=== PATIENT | female | born 1995 | race Caucasian/White ===

== ENCOUNTER 2016-12-15 21:33 | Emergency (ER) | payer SELFPAY ==
[~2016-12-15] VITALS: Ht 154.9 cm; Wt 49.0 kg
[2016-12-15 21:34] VITALS: BP 112/71; PULSE 77; RESP 16; TEMP 97.7; O2SAT 99
[2016-12-15] MEDS ORDERED: CEPH-460 PO (22:14)
[2016-12-15] MEDS ORDERED: BACT800T5 PO (22:14)
[2016-12-15] MEDS ORDERED: CEPHALEXIN MONOHYDRATE 500 MG CAP PO ONE (22:15)
[2016-12-15] MEDS ORDERED: SULFAMETHOXAZOLE-TRIMETHOPRIM DS 800-160 MG TAB PO ONE (22:15)
--- NOTE | 2016-12-15 22:15 | PD ---
HPI Chief Complaint: Skin Problem Time Seen by Provider: 21:59 Travel History International Travel<30 days: No Contact w/Intl Traveler<30days: No Traveled to known affect area: No History of Present Illness HPI 21-year-old female presents to the emergency department for evaluation of possible infection to her left wrist. She states she was bit by an insect approximately 3 days ago. She states that she was using vinegar to help with the infection, but the redness has spread. She denies any fevers or chills. She has no medical problems and takes no prescribed medications. She denies any chance of . Patient denies any history of IV drug use. Severity is [id number]-bldbsrnq. No exacerbating or alleviating factors. PFSH Past Medical History Medical History: Denies Significant Hx Diminished Hearing: No Immunizations Current: No ?: Not LMP: 12/11/16 Past Surgical History Surgical History: No Previous Surgery Social History Alcohol Use: No Tobacco Use: Yes (3-5 CIGS AND USES HOOKA) Substance Use: No Allergies-Medications (Allergen,Severity, Reaction): Coded Allergies: No Known Allergies (Unverified , 12/15/16) Review of Systems Except as stated in HPI: all other systems reviewed are Neg Physical Exam Narrative GENERAL: Well-nourished, well-developed female patient, ambulatory. Afebrile. SKIN: Focused skin assessment warm/dry. Patient has 5 cm x 7 cm area of erythema to the left wrist. No fluctuance or evidence of abscess. No lymphangitis. HEAD: Normocephalic. Atraumatic. EYES: No scleral icterus. No injection or drainage. NECK: Supple, trachea midline. No JVD or lymphadenopathy. CARDIOVASCULAR: Regular rate and rhythm without murmurs, gallops, or rubs. Right radial pulses 2+. RESPIRATORY: Breath sounds equal bilaterally. No accessory muscle use. Lungs sounds are clear to auscultation. GASTROINTESTINAL: Abdomen soft, non-tender, nondistended. MUSCULOSKELETAL: No cyanosis, or edema. Patient has full flexion-extension of the right wrist without pain or stiffness. BACK: Nontender without obvious deformity. No CVA tenderness. Data Data Last Documented VS Vital Signs Date Time Temp Pulse Resp B/P (MAP) Pulse Ox O2 Delivery O2 Flow Rate FiO2 12/15/16 21:34 97.7 77 16 112/71 (85) 99 Room Air Orders Orders Sulfamet-Trimeth Ds 800-160 Mg (Bactrim (12/15/16 22:15) Cephalexin (Keflex) (12/15/16 22:15) [facility] Medical Decision Making Medical Screen Exam Complete: Yes Emergency Medical Condition: Yes Medical Record Reviewed: Yes Differential Diagnosis Cellulitis versus abscess versus localized reaction versus septic joint Narrative Course 21-year-old female presents to the emergency department for evaluation of erythema to her left wrist that started 3 days ago after an insect bite. Physical exam is consistent with cellulitis. There is no evidence of abscess or septic joint on exam. Patient is given first dose of Bactrim and Keflex in the emergency department. She'll be discharged with prescriptions for the same. She is instructed to monitor closely and return if worsening symptoms. She verbalizes agreement and understanding. The patient was discharged in stable condition with instructions, including return instructions and follow up instructions. Diagnosis Primary Impression: Cellulitis of wrist Referrals: Primary Care Physician call for appointment Patient Instructions: Cellulitis (ED), General Instructions Additional Instructions: Clean area twice daily with soap and water and apply iixz-ixd-[id number] antibiotic ointment. Take antibiotics as directed until gone. Follow-up with your primary care physician. Return to the emergency department for any acute worsening of symptoms. Med/Other Pt SpecificInfo: Prescription(s) given Scripts Cephalexin (Keflex) 500 Mg Capsule 500 MG PO Q6H for Infection for 10 Days, #40 CAP 0 Refills Prov: Petrona Cedillo 12/15/16 Sulfamethoxazole-Trimethoprim (Bactrim DS) 800-160 Mg Tab 1 TAB PO BID for Infection, #20 TAB 0 Refills Prov: ePtrona Cedillo 12/15/16 Disposition: 01 DISCHARGE HOME Condition: Stable Petrona Cedillo Dec 15, 2016 22:15
== END 2016-12-15 22:30 | disposition home or self-care (01) ==
LOC: NEPE 21:33
DX: L03.113 Cellulitis of right upper limb (principal); F17.210 Nicotine dependence, cigarettes, uncomplicated
CPT/HCPCS: 99284

== ENCOUNTER 2017-01-17 04:38 | Emergency (ER) | payer SELFPAY ==
[~2017-01-17] VITALS: Ht 152.4 cm; Wt 49.0 kg
[~2017-01-17 04:38] MED LIST: BACT800T5 PO; CEPH-460 PO
[2017-01-17 04:40] VITALS: BP 94/62; PULSE 102; RESP 16; TEMP 98.6; O2SAT 95
[2017-01-17] MEDS ORDERED: ONDANSETRON HCL 4 MG/2 ML VIAL IV PUSH ONE (05:15)
[2017-01-17] MEDS ORDERED: SODIUM CHLOR 0.9% 1000 ML INJ 1,000 ML IV ONE (05:15)
[2017-01-17] MEDS ORDERED: PANTOPRAZOLE SODIUM 40 MG VIAL IV PUSH ONE (05:15)
[2017-01-17 05:33] LABS: AUTOMATED NEUTROPHIL # 7.2 TH/MM3 (1.8-7.7); BASOPHIL % 0.2 % (0.0-2.0); EOSINOPHIL % 0.1 % (0.0-4.0); HEMATOCRIT 39.6 % (35.0-46.0); HEMO FLAGS DIFF FINAL; LYMPH % 12.1 % (9.0-44.0); MEAN CELL VOLUME 83.1 FL (80.0-100.0); MEAN CORPUSCULAR HEMOGLOBIN 29.2 PG (27.0-34.0); MEAN CORPUSCULAR HGB CONC 35.2 % (32.0-36.0); MONO % 4.3 % (0.0-8.0); NEUT % 83.3 % (16.0-70.0); PLATELET COUNT 232 TH/MM3 (150-450); RED BLOOD COUNT 4.77 MIL/MM3 (4.00-5.30); RED CELL DISTRIBUTION WIDTH 12.7 % (11.6-17.2); WHITE BLOOD COUNT 8.6 TH/MM3 (4.0-11.0)
[2017-01-17 05:44] LABS: ANION GAP 8 MEQ/L (5-15); AST (GOT) 10 U/L (15-37); BICARBONATE 26.1 MEQ/L (21.0-32.0); BLOOD UREA NITROGEN 10 MG/DL (7-18); CHLORIDE 104 MEQ/L (98-107); GLOMERULAR FILTRATION RATE 89 ML/MIN (>89); POTASSIUM 3.3 MEQ/L (3.5-5.1); SODIUM (NA) 138 MEQ/L (136-145)
[2017-01-17 05:45] LABS: ALT (GPT) 15 U/L (10-53)
[2017-01-17 05:47] LABS: ALKALINE PHOSPHATASE 45 U/L (45-117); TOTAL BILIRUBIN ADULT 0.5 MG/DL (0.2-1.0)
[2017-01-17] MEDS ORDERED: MORPHINE SULFATE 4 MG/ML INJ IV PUSH ONE (06:00)
[2017-01-17] MEDS ORDERED: DIATRIZOATE MEGLUM/DIATRIZOATE SOD 9 ML CUP ONE (06:04)
[2017-01-17] MEDS ORDERED: IOHEXOL 350 MG/ML 10 ML VIAL (for RAD DIAG) IVCONTRAST ONE (07:22)
--- NOTE | 2017-01-17 07:57 | RADRPT ---
EXAM DATE/TIME: 01/17/2017 07:08 [facility] COMPARISON: No previous studies available for comparison. INDICATIONS : Lower abdominal pain since last night. IV CONTRAST: 68 cc Omnipaque 350 (iohexol) IV ORAL CONTRAST: No oral contrast ingested. RADIATION DOSE: 4.85 CTDIvol (mGy) MEDICAL HISTORY : None SURGICAL HISTORY : None. ENCOUNTER: Initial ACUITY: 1 day PAIN SCALE: 6/10 LOCATION: Bilateral lower quadrant TECHNIQUE: Volumetric scanning of the abdomen and pelvis was performed. Using automated exposure control and adjustment of the mA and/or kV according to patient size, radiation dose was kept as low as reasonably achievable to obtain optimal diagnostic quality images. DICOM format image data is av ailable electronically for review and comparison. FINDINGS: LOWER LUNGS: The visualized lower lungs are clear. LIVER: Homogeneous density without lesion. There is no dilation of the biliary tree. No calcifi ed gallstones. SPLEEN: Normal size without lesion. PANCREAS: Within normal limits. KIDNEYS: Normal in size and shape. There is no mass, stone or hydronephrosis. ADRENAL GLANDS: Within normal limits. VASCULAR: There is no aortic aneurysm. BOWEL/MESENTERY: The stomach, small bowel, and colon demonstrate no acute abnormality. There is no free intraperitoneal air or fluid. ABDOMINAL WALL: Within normal limits. RETROPERITONEUM: There is no lymphadenopathy. BLADDER: No wall thickening or mass. REPRODUCTIVE: Within normal limits. Minimal prominence of the left fallopian tube. Some free flui d in the pelvis not unusual for a female this age INGUINAL: There is no lymphadenopathy or hernia. MUSCULOSKELETAL: Within normal limits for patient age. CONCLUSION: The appendix is unremarkable without evidence of appendicitis. The solid organs of the ab domen are unremarkable. There is mild prominence of left sided fallopian tube and some physiologic fr ee fluid in the pelvis not unusual for a female this age. Nathen Flores MD on January 17, 2017 at 7:55 Board Certified Radiologist. This report was verified electronically.
[2017-01-17 08:05] LABS: BETA HCG QUANT LESS THAN 1 MIU/ML (0-5)
[2017-01-17] MEDS ORDERED: ZOFR4TAB3 SL (08:43)
[2017-01-17] MEDS ORDERED: DICY10 PO (08:43)
--- NOTE | 2017-01-17 08:43 | PD ---
Data Data Last Documented VS Vital Signs Date Time Temp Pulse Resp B/P (MAP) Pulse Ox O2 Delivery O2 Flow Rate FiO2 01/17/17 04:40 98.6 102 16 94/62 (73) 95 Room Air Orders Orders Complete Blood Count With Diff (01/17/17 05:14) Comprehensive Metabolic Panel (01/17/17 05:14) Lipase (01/17/17 05:14) Pantoprazole Inj (Protonix Inj) (01/17/17 05:15) Ondansetron Inj (Zofran Inj) (01/17/17 05:15) Sodium Chlor 0.9% 1000 Ml Inj (Ns 1000 M (01/17/17 05:15) Morphine Inj (Morphine Inj) (01/17/17 06:00) Ct Abd/Pel W Iv Contrast(Rout) (01/17/17 ) Oral Contrast - Adult (01/17/17 06:00) Diatrizoate Liq ( Gastroview Liq) (01/17/17 06:04) Iohexol 350 Inj (Omnipaque 350 Inj) (01/17/17 07:22) Beta Hcg (Quant/Titer) (01/17/17 07:33) Labs Laboratory Tests Test 01/17/17 05:10 White Blood Count 8.6 TH/MM3 Red Blood Count 4.77 MIL/MM3 Hemoglobin 13.9 GM/DL Hematocrit 39.6 % Mean Corpuscular Volume 83.1 FL Mean Corpuscular Hemoglobin 29.2 PG Mean Corpuscular Hemoglobin Concent 35.2 % Red Cell Distribution Width 12.7 % Platelet Count 232 TH/MM3 Mean Platelet Volume 7.3 FL Neutrophils (%) (Auto) 83.3 % Lymphocytes (%) (Auto) 12.1 % Monocytes (%) (Auto) 4.3 % Eosinophils (%) (Auto) 0.1 % Basophils (%) (Auto) 0.2 % Neutrophils # (Auto) 7.2 TH/MM3 Lymphocytes # (Auto) 1.0 TH/MM3 Monocytes # (Auto) 0.4 TH/MM3 Eosinophils # (Auto) 0.0 TH/MM3 Basophils # (Auto) 0.0 TH/MM3 CBC Comment DIFF FINAL Differential Comment Blood Urea Nitrogen 10 MG/DL Creatinine 0.80 MG/DL Random Glucose 90 MG/DL Total Protein 6.7 GM/DL Albumin 3.6 GM/DL Calcium Level 8.1 MG/DL Alkaline Phosphatase 45 U/L Aspartate Amino Transf (AST/SGOT) 10 U/L Alanine Aminotransferase (ALT/SGPT) 15 U/L Total Bilirubin 0.5 MG/DL Sodium Level 138 MEQ/L Potassium Level 3.3 MEQ/L Chloride Level 104 MEQ/L Carbon Dioxide Level 26.1 MEQ/L Anion Gap 8 MEQ/L Estimat Glomerular Filtration Rate 89 ML/MIN Lipase 86 U/L Human Chorionic Gonadotropin, Quant LESS THAN 1 MIU/ML MDM Supervised Visit with CHELLE: Yes Narrative Course 20 year-old woman, history of abdominal pain, nausea vomiting diarrhea, family member with same. Signed out to me by Dr. Roberts the follow-up on the results of labs and CT. LABS: CBC is unremarkable. CMP is unremarkable. HCG is negative. Lipase is normal. CT abdomen and pelvis unremarkable without evidence of appendicitis. FINAL: On repeat exam, patient appears comfortable, benign abdominal exam, recommend supportive treatment. Diagnosis Primary Impression: Abdominal pain Additional Impression: Nausea vomiting and diarrhea Additional Instruction: Take Zofran as prescribed as needed for nausea or vomiting. Take Bentyl as needed for abdominal pain or cramping. Use edyv-kah-tqkymus Imodium as needed for diarrhea. Return to the emergency department for any worsening abdominal pain, bloody diarrhea, high fevers, or any other new or worsening symptoms. Follow-up with your primary physician on Friday if you are not completely well. Med/Other Pt SpecificInfo: Prescription(s) given Scripts Dicyclomine (Bentyl) 10 Mg Cap 10 MG PO TID Y for Bowel Management, #12 CAP 0 Refills Prov: Nathen Mccain MD 01/17/17 Ondansetron Odt (Zofran Odt) 4 Mg Tab 4 MG SL Q8HR Y for Nausea/Vomiting, #12 TAB 0 Refills Prov: Nathen Mccain MD 01/17/17 Disposition: 01 DISCHARGE HOME Condition: Stable Nathen Mccain MD Jan 17, 2017 08:43
--- NOTE | 2017-01-30 19:37 | PD ---
HPI Chief Complaint: Abdominal Pain Time Seen by Provider: 04:58 Travel History International Travel<30 days: No Contact w/Intl Traveler<30days: No Traveled to known affect area: No History of Present Illness HPI pt 20 yr old with abdominal pain with nausea diarrhea vomit , not relieved by home OTC meds . Pt has sick contact with similiar symptoms . PFSH Past Medical History Medical History: Denies Significant Hx Diminished Hearing: No Immunizations Current: No ?: Not LMP: 01/10/17 Past Surgical History Surgical History: No Previous Surgery Social History Alcohol Use: No Tobacco Use: Yes (1/2 PPD AND USES HOOKA) Substance Use: No Allergies-Medications (Allergen,Severity, Reaction): Coded Allergies: No Known Allergies (Unverified , 01/17/17) Reported Meds & Prescriptions Reported Meds & Active Scripts Active Bentyl (Dicyclomine HCl) 10 Mg Cap 10 Mg PO TID PRN Zofran Odt (Ondansetron Odt) 4 Mg Tab 4 Mg SL Q8HR PRN Review of Systems Except as stated in HPI: all other systems reviewed are Neg Gastrointestinal: Positive: Nausea, Abdominal Pain Physical Exam Narrative GENERAL: non toxic appearing awake alert Ox3 SKIN: Warm and dry. HEAD: Atraumatic. Normocephalic. EYES: Pupils equal and round. No scleral icterus. No injection or drainage. ENT: No nasal bleeding or discharge. Mucous membranes pink and moist. NECK: Trachea midline. No JVD. CARDIOVASCULAR: Regular rate and rhythm. RESPIRATORY: No accessory muscle use. Clear to auscultation. Breath sounds equal bilaterally. GASTROINTESTINAL: Abdomen right sided abdo pain mildly soft, nondistended. Hepatic and splenic margins not palpable. MUSCULOSKELETAL: Extremities without clubbing, cyanosis, or edema. No obvious deformities. NEUROLOGICAL: Awake and alert. No obvious cranial nerve deficits. Motor grossly within normal limits. Five out of 5 muscle strength in the arms and legs. Normal speech. PSYCHIATRIC: Appropriate mood and affect; insight and judgment normal. Data Data Orders Orders Complete Blood Count With Diff (01/17/17 05:14) Comprehensive Metabolic Panel (01/17/17 05:14) Lipase (01/17/17 05:14) Pantoprazole Inj (Protonix Inj) (01/17/17 05:15) Ondansetron Inj (Zofran Inj) (01/17/17 05:15) Sodium Chlor 0.9% 1000 Ml Inj (Ns 1000 M (01/17/17 05:15) Morphine Inj (Morphine Inj) (01/17/17 06:00) Ct Abd/Pel W Iv Contrast(Rout) (01/17/17 ) Oral Contrast - Adult (01/17/17 06:00) Diatrizoate Liq (Md Salomon Liq) (01/17/17 06:04) Iohexol 350 Inj (Omnipaque 350 Inj) (01/17/17 07:22) Beta Hcg (Quant/Titer) (01/17/17 07:33) Ed Discharge Order (01/17/17 08:54) Labs Laboratory Tests Test 01/17/17 05:10 White Blood Count 8.6 TH/MM3 Red Blood Count 4.77 MIL/MM3 Hemoglobin 13.9 GM/DL Hematocrit 39.6 % Mean Corpuscular Volume 83.1 FL Mean Corpuscular Hemoglobin 29.2 PG Mean Corpuscular Hemoglobin Concent 35.2 % Red Cell Distribution Width 12.7 % Platelet Count 232 TH/MM3 Mean Platelet Volume 7.3 FL Neutrophils (%) (Auto) 83.3 % Lymphocytes (%) (Auto) 12.1 % Monocytes (%) (Auto) 4.3 % Eosinophils (%) (Auto) 0.1 % Basophils (%) (Auto) 0.2 % Neutrophils # (Auto) 7.2 TH/MM3 Lymphocytes # (Auto) 1.0 TH/MM3 Monocytes # (Auto) 0.4 TH/MM3 Eosinophils # (Auto) 0.0 TH/MM3 Basophils # (Auto) 0.0 TH/MM3 CBC Comment DIFF FINAL Differential Comment Blood Urea Nitrogen 10 MG/DL Creatinine 0.80 MG/DL Random Glucose 90 MG/DL Total Protein 6.7 GM/DL Albumin 3.6 GM/DL Calcium Level 8.1 MG/DL Alkaline Phosphatase 45 U/L Aspartate Amino Transf (AST/SGOT) 10 U/L Alanine Aminotransferase (ALT/SGPT) 15 U/L Total Bilirubin 0.5 MG/DL Sodium Level 138 MEQ/L Potassium Level 3.3 MEQ/L Chloride Level 104 MEQ/L Carbon Dioxide Level 26.1 MEQ/L Anion Gap 8 MEQ/L Estimat Glomerular Filtration Rate 89 ML/MIN Lipase 86 U/L Human Chorionic Gonadotropin, Quant LESS THAN 1 MIU/ML MDM Medical Decision Making Medical Screen Exam Complete: Yes Emergency Medical Condition: Yes Differential Diagnosis abdo pain vs appendicitis vs GB disease vs gastroenteritis, other Narrative Course protonix and zofran IV did not relieve her Sx and the Morphine 2mg and CT to rule out significant pathology cause of pain including appendicitis Diagnosis Primary Impression: Abdominal pain Additional Impression: Nausea vomiting and diarrhea Patient Instructions: General Instructions, Acute Nausea and Vomiting (ED) Departure Forms: Tests/Procedures Additional Instructions: Take Zofran as prescribed as needed for nausea or vomiting. Take Bentyl as needed for abdominal pain or cramping. Use yuju-mfy-[id number] Imodium as needed for diarrhea. Return to the emergency department for any worsening abdominal pain, bloody diarrhea, high fevers, or any other new or worsening symptoms. Follow-up with your primary physician on Friday if you are not completely well. Scripts Dicyclomine (Bentyl) 10 Mg Cap 10 MG PO TID Y for Bowel Management, #12 CAP 0 Refills Prov: Nathen Mccain MD 01/17/17 Ondansetron Odt (Zofran Odt) 4 Mg Tab 4 MG SL Q8HR Y for Nausea/Vomiting, #12 TAB 0 Refills Prov: Nathen Mccain MD 01/17/17 Disposition: 01 DISCHARGE HOME Condition: Stable Fahad Roberts MD Jan 30, 2017 19:36
== END 2017-01-17 09:58 | disposition home or self-care (01) ==
LOC: NEPE 04:38
DX: R10.9 Unspecified abdominal pain (principal); R11.2 Nausea with vomiting, unspecified; R19.7 Diarrhea, unspecified; F17.200 Nicotine dependence, unspecified, uncomplicated
CPT/HCPCS: 74177; 80053; 83690; 84702; 85025; 96374; 96375; 99285; C9113; J2270; J2405; J7030; Q9963; Q9967

== ENCOUNTER 2017-04-09 13:49 | Emergency (ER) | payer SELFPAY ==
[~2017-04-09] VITALS: Ht 165.1 cm; Wt 49.0 kg
[~2017-04-09 13:49] MED LIST changes: -BACT800T5 PO; -CEPH-460 PO; +DICY10 PO; +ZOFR4TAB3 SL
[2017-04-09] MEDS ORDERED: IOHEXOL 350 MG/ML 10 ML VIAL (for RAD DIAG) IVCONTRAST ONE (13:50)
[2017-04-09 14:06] VITALS: BP 108/73; PULSE 83; RESP 16; TEMP 99; O2SAT 99
[2017-04-09] MEDS ORDERED: SODIUM CHLOR 0.9% 1000 ML INJ 1,000 ML IV SCH (14:18)
--- NOTE | 2017-04-09 14:18 | PD ---
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 denies any alleviating/aggravating factors nkda denies pmhx or pshx PFSH Past Medical History Anemia: Yes Diminished Hearing: No Immunizations Current: No Tetanus Vaccination: < 5 Years ?: Not Past Surgical History Surgical History: No Previous Surgery Social History Alcohol Use: No Tobacco Use: Yes (1/2 PPD AND USES HOOKA) Substance Use: No Allergies-Medications (Allergen,Severity, Reaction): Coded Allergies: No Known Allergies (Unverified , 04/09/17) Reported Meds & Prescriptions Reported Meds & Active Scripts Active Zofran Odt (Ondansetron Odt) 4 Mg Tab 4 Mg SL Q8HR PRN Ultram (Tramadol HCl) 50 Mg Tab 50 Mg PO Q8H PRN Macrobid (Nitrofurantoin Monohydrate Macrocrystals) 100 Mg Capsule 100 Mg PO BID 5 Days Review of Systems General / Constitutional: No: Fever Eyes: No: Visual changes HENT: No: Headaches Cardiovascular: No: Chest Pain or Discomfort Respiratory: No: Shortness of Breath Gastrointestinal: Positive: Nausea, Abdominal Pain Genitourinary: No: Dysuria Musculoskeletal: No: Pain Skin: No Rash Neurologic: No: Weakness Psychiatric: No: Depression Endocrine: No: Polydipsia Hematologic/Lymphatic: No: Easy Bruising Physical Exam Narrative GENERAL: SKIN: Warm and dry. HEAD: Atraumatic. Normocephalic. EYES: Pupils equal and round. No scleral icterus. No injection or drainage. ENT: No nasal bleeding or discharge. Mucous membranes pink and moist. NECK: Trachea midline. No JVD. CARDIOVASCULAR: Regular rate and rhythm. RESPIRATORY: No accessory muscle use. Clear to auscultation. Breath sounds equal bilaterally. GASTROINTESTINAL: Abdomen soft, nondistended. mild ttp over rlq/suprapubic region MUSCULOSKELETAL: Extremities without clubbing, cyanosis, or edema. No obvious deformities. NEUROLOGICAL: Awake and alert. No obvious cranial nerve deficits. Motor grossly within normal limits. Five out of 5 muscle strength in the arms and legs. Normal speech. PSYCHIATRIC: Appropriate mood and affect; insight and judgment normal. Data Data Last Documented VS Orders Orders Complete Blood Count With Diff (04/09/17 14:18) Comprehensive Metabolic Panel (04/09/17 14:18) Lipase (04/09/17 14:18) Urinalysis - C+S If Indicated (04/09/17 14:18) Iv Access Insert/Monitor (04/09/17 14:18) Ecg Monitoring (04/09/17 14:18) Oximetry (04/09/17 14:18) NPO (04/09/17 14:18) Sodium Chloride 0.9% Flush (Ns Flush) (04/09/17 14:30) Ed Urine Pregnancytest Poc (04/09/17 14:18) Sodium Chlor 0.9% 1000 Ml Inj (Ns 1000 M (04/09/17 14:18) Ct Abd/Pel W Iv Contrast(Rout) (04/09/17 15:20) Sodium Chloride 0.9% Flush (Ns Flush) (04/09/17 15:30) Diatrizoate Liq ( Gastroview Liq) (04/09/17 15:25) Iohexol 350 Inj (Omnipaque 350 Inj) (04/09/17 13:50) Ed Discharge Order (04/09/17 17:16) Labs Laboratory Tests Test 04/09/17 14:35 White Blood Count 6.2 TH/MM3 Red Blood Count 4.71 MIL/MM3 Hemoglobin 13.8 GM/DL Hematocrit 39.1 % Mean Corpuscular Volume 83.1 FL Mean Corpuscular Hemoglobin 29.4 PG Mean Corpuscular Hemoglobin Concent 35.4 % Red Cell Distribution Width 12.9 % Platelet Count 279 TH/MM3 Mean Platelet Volume 7.5 FL Neutrophils (%) (Auto) 64.2 % Lymphocytes (%) (Auto) 25.9 % Monocytes (%) (Auto) 8.2 % Eosinophils (%) (Auto) 1.3 % Basophils (%) (Auto) 0.4 % Neutrophils # (Auto) 4.0 TH/MM3 Lymphocytes # (Auto) 1.6 TH/MM3 Monocytes # (Auto) 0.5 TH/MM3 Eosinophils # (Auto) 0.1 TH/MM3 Basophils # (Auto) 0.0 TH/MM3 CBC Comment DIFF FINAL Differential Comment Urine Color YELLOW Urine Turbidity CLEAR Urine pH 5.5 Urine Specific [place] 1.016 Urine Protein NEG mg/dL Urine Glucose (UA) NEG mg/dL Urine Ketones NEG mg/dL Urine Occult Blood TRACE Urine Nitrite NEG Urine Bilirubin NEG Urine Urobilinogen LESS THAN 2.0 MG/DL Urine Leukocyte Esterase NEG Urine RBC 1 /hpf Urine WBC 1 /hpf Urine Squamous Epithelial Cells <1 /hpf Urine Mucus FEW /lpf Microscopic Urinalysis Comment CULT NOT INDICATED Blood Urea Nitrogen 10 MG/DL Creatinine 0.65 MG/DL Random Glucose 78 MG/DL Total Protein 7.2 GM/DL Albumin 4.1 GM/DL Calcium Level 8.6 MG/DL Alkaline Phosphatase 49 U/L Aspartate Amino Transf (AST/SGOT) 14 U/L Alanine Aminotransferase (ALT/SGPT) 18 U/L Total Bilirubin 0.3 MG/DL Sodium Level 140 MEQ/L Potassium Level 4.0 MEQ/L Chloride Level 107 MEQ/L Carbon Dioxide Level 27.6 MEQ/L Anion Gap 5 MEQ/L Estimat Glomerular Filtration Rate 113 ML/MIN Lipase 170 U/L [facility] Medical Decision Making Medical Screen Exam Complete: Yes Emergency Medical Condition: Yes Medical Record Reviewed: Yes Differential Diagnosis appy v colitis v diverticulitis v cyst v preg related Narrative Course NORMAL LIPASE/KIDNEY/LIVER FUNCTION AND NORMAL ELECTROLYTES NO LEUKOCYTOSIS, ANEMIA OR LEFT SHIFT. CT ABD/PELVIS :NORMAL APPENDIX, NO COLITIS, NO DIVERTICULITIS Diagnosis Primary Impression: UTI Patient Instructions: General Instructions, Urinary Tract Infection in Women ( DC) Scripts Ondansetron Odt (Zofran Odt) 4 Mg Tab 4 MG SL Q8HR Y for Nausea/Vomiting, #12 TAB 0 Refills Prov: Mir Forte MD 04/09/17 Tramadol (Ultram) 50 Mg Tab 50 MG PO Q8H Y for PAIN, #10 TAB 0 Refills Prov: Mir Forte MD 04/09/17 Nitrofurantoin Monohydrate Macrocrystals (Macrobid) 100 Mg Capsule 100 MG PO BID for Infection for 5 Days, #10 CAP 0 Refills Prov: Mir Forte MD 04/09/17 Disposition: 01 DISCHARGE HOME Condition: Stable Mir Forte MD Apr 09, 2017 14:18
[2017-04-09] MEDS ORDERED: SODIUM CHLORIDE 0.9% FLUSH 10 ML FLUSH IV FLUSH PRN ×2 (14:30→15:30)
[2017-04-09 14:38] VITALS: O2SAT 99
[2017-04-09] MEDS ORDERED: DIATRIZOATE MEGLUM/DIATRIZOATE SOD 9 ML CUP ONE (15:25)
[2017-04-09 16:01] LABS: BASOPHIL % 0.4 % (0.0-2.0); EOSINOPHIL # 0.1 TH/MM3 (0-0.4); EOSINOPHIL % 1.3 % (0.0-4.0); HEMATOCRIT 39.1 % (35.0-46.0); HEMOGLOBIN 13.8 GM/DL (11.6-15.3); LYMPH % 25.9 % (9.0-44.0); LYMPHOCYTE # 1.6 TH/MM3 (1.0-4.8); MEAN CELL VOLUME 83.1 FL (80.0-100.0); MEAN CORPUSCULAR HEMOGLOBIN 29.4 PG (27.0-34.0); MEAN CORPUSCULAR HGB CONC 35.4 % (32.0-36.0); MEAN PLATELET VOLUME 7.5 FL (7.0-11.0); MONO % 8.2 % (0.0-8.0); MONOCYTE # 0.5 TH/MM3 (0-0.9); NEUT % 64.2 % (16.0-70.0); PLATELET COUNT 279 TH/MM3 (150-450); RED BLOOD COUNT 4.71 MIL/MM3 (4.00-5.30); RED CELL DISTRIBUTION WIDTH 12.9 % (11.6-17.2); WHITE BLOOD COUNT 6.2 TH/MM3 (4.0-11.0)
[2017-04-09 16:07] LABS: BILIRUBIN, URINE NEG (NEG); BLOOD, URINE TRACE (NEG); GLUCOSE,URINE NEG (NEG); KETONE, URINE NEG (NEG); MUCUS URINE FEW /lpf (OCC); NITRITE,URINE NEG (NEG); PH, URINE 5.5 (5.0-8.5); SQUAMOUS EPITHELIAL CELL URINE <1 /hpf (0-5); URINE COLOR YELLOW (YELLW/STRAW); URINE LEUKOCYTE ESTERASE NEG (NEG)
[2017-04-09 16:20] LABS: ALBUMIN 4.1 GM/DL (3.4-5.0); ALT (GPT) 18 U/L (10-53); AST (GOT) 14 U/L (15-37); BICARBONATE 27.6 MEQ/L (21.0-32.0); BLOOD UREA NITROGEN 10 MG/DL (7-18); CALCIUM 8.6 MG/DL (8.5-10.1); CHLORIDE 107 MEQ/L (98-107); CREATININE 0.65 MG/DL (0.50-1.00); GLOMERULAR FILTRATION RATE 113 ML/MIN (>89); GLUCOSE,RANDOM 78 MG/DL (74-106); SODIUM (NA) 140 MEQ/L (136-145)
[2017-04-09 16:22] LABS: ALKALINE PHOSPHATASE 49 U/L (45-117); TOTAL BILIRUBIN ADULT 0.3 MG/DL (0.2-1.0); TOTAL PROTEIN 7.2 GM/DL (6.4-8.2)
--- NOTE | 2017-04-09 16:52 | RADRPT ---
EXAM DATE/TIME: 04/09/2017 16:12 [facility] COMPARISON: CT ABDOMEN & PELVIS W CONTRAST, January 17, 2017, 7:08. INDICATIONS : Lower pelvic pain IV CONTRAST: 71 cc Omnipaque 350 (iohexol) IV ORAL CONTRAST: Prescribed oral contrast ingested. RADIATION DOSE: 6.64 CTDIvol (mGy) MEDICAL HISTORY : None SURGICAL HISTORY : None. ENCOUNTER: Initial ACUITY: 1 day PAIN SCALE: 5/10 LOCATION: abdomen TECHNIQUE: Volumetric scanning of the abdomen and pelvis was performed. Using automated exposure control and ad justment of the mA and/or kV according to patient size, radiation dose was kept as low as reasonably achievable to obtain optimal diagnostic quality images. DICOM format image data is available electro nically for review and comparison. FINDINGS: There is mild respiratory motion artifact. LOWER LUNGS: The visualized lower lungs are clear. LIVER: Homogeneous density without lesion. There is no dilation of the biliary tree. No calcified gallston es. SPLEEN: Normal size without lesion. PANCREAS: Within normal limits. KIDNEYS: Normal in size and shape. There is no mass, stone or hydronephrosis. ADRENAL GLANDS: Within normal limits. VASCULAR: There is no aortic aneurysm. BOWEL/MESENTERY: The stomach, small bowel, and colon demonstrate no acute abnormality. There is no free intraperitone al air or fluid. Appendix is normal. ABDOMINAL WALL: Within normal limits. RETROPERITONEUM: There is no lymphadenopathy. BLADDER: No wall thickening or mass. REPRODUCTIVE: Within normal limits. INGUINAL: There is no lymphadenopathy or hernia. MUSCULOSKELETAL: Within normal limits for patient age. CONCLUSION: No abnormality is identified to explain the clinical symptoms. No acute finding is identified. Chalo Clark MD on April 09, 2017 at 16:48 Board Certified Radiologist. This report was verified electronically.
[2017-04-09] MEDS ORDERED: ZOFR4TAB3 SL (17:15)
[2017-04-09] MEDS ORDERED: TRAM50 PO (17:15)
[2017-04-09] MEDS ORDERED: MACR100C2 PO (17:15)
== END 2017-04-09 17:32 | disposition home or self-care (01) ==
LOC: NEPD 13:49
DX: N39.0 Urinary tract infection, site not specified (principal); R11.0 Nausea; D64.9 Anemia, unspecified; Z72.0 Tobacco use
CPT/HCPCS: 74177; 80053; 81001; 83690; 84703; 85025; 96360; 99284; J7030; Q9963; Q9967